=== PATIENT | female | born 1955 | race African-American/Black ===

== ENCOUNTER 2018-11-23 12:25 | Emergency (ER) | payer MEDICAID ==
[~2018-11-23] VITALS: Ht 167.6 cm; Wt 109.0 kg
[2018-11-23 14:45] LABS: BASOPHILS % 0.6 % (0.0-2.0); EOSINOPHILS % 0.6 % (0.0-5.0); HEMATOCRIT. 33.4 % (36.0-48.0); HEMOGLOBIN. 11.2 g/dL (12.0-16.0); MEAN CORPUSCULAR HEMOGLOBIN 27.7 pg (28.0-32.0); MEAN CORPUSCULAR VOLUME 82.4 fL (81.0-99.0); MONOCYTES % 8.2 % (2.0-8.0); NEUTROPHILS % 73.6 % (40.0-76.0); PLATELET 304 x1000/uL (130-400); RED BLOOD CELL COUNT 4.05 mill/uL (4.2-5.4); RED CELL DISTRIBUTION WIDTH 14.8 % (11.6-14.6)
[2018-11-23 14:51] LABS: CHLORIDE 105 mEq/L (98-107)
[2018-11-23 18:30] VITALS: BP 121/67
== END 2018-11-23 19:30 | disposition home or self-care (01) ==
LOC: ER 12:25
DX: L97.529 Non-pressure chronic ulcer of other part of left foot with unspecified severity (principal); L97.519 Non-pressure chronic ulcer of other part of right foot with unspecified severity; E11.9 Type 2 diabetes mellitus without complications; I11.0 Hypertensive heart disease with heart failure; I50.9 Heart failure, unspecified; E78.00 Pure hypercholesterolemia, unspecified; Z88.5 Allergy status to narcotic agent; Z88.6 Allergy status to analgesic agent; Z91.040 Latex allergy status
CPT/HCPCS: 36415; 80053; 83605; 85025; 99283; Z7610

== ENCOUNTER 2018-12-06 09:28 | Inpatient (IN) | payer MEDICAID ==
[~2018-12-06] VITALS: Ht 165.1 cm; Wt 109.8 kg
[2018-12-06] MEDS ORDERED: METO25TA6 PO (10:25)
[2018-12-06] MEDS ORDERED: PANT40TA4 PO (10:25)
[2018-12-06] MEDS ORDERED: NITR0.4T49 SL (10:25)
[2018-12-06] MEDS ORDERED: FLUT15.88 NS (10:25)
[2018-12-06] MEDS ORDERED: METF-414 PO (10:25)
[2018-12-06] MEDS ORDERED: MAGN400T7 PO (10:25)
[2018-12-06] MEDS ORDERED: LISI-186 PO (10:25)
[2018-12-06] MEDS ORDERED: FURO40TA5 PO (10:25)
[2018-12-06] MEDS ORDERED: CLOP75TA15 PO (10:25)
[2018-12-06] MEDS ORDERED: ACET-2708 PO (10:25)
[2018-12-06] MEDS ORDERED: ATOR-2 PO (10:25)
[2018-12-06] MEDS ORDERED: AMLO10TA80 PO (10:25)
[2018-12-06] MEDS ORDERED: TRAM50TA3 PO (10:25)
[2018-12-06] MEDS ORDERED: KETOROLAC 30MG/ML VIAL IV STA (10:31)
[2018-12-06] MEDS ORDERED: PIPERACILLIN/TAZ 3.375G PREMIX 50 ML IV ONE (10:45)
[2018-12-06] MEDS ORDERED: VANCOMYCIN 1 G PREMIX 200 ML IV ONE (10:45)
[2018-12-06] MEDS ORDERED: SODIUM CHLORIDE 0.9% 1000ML BAG (SEPSIS BOLUS) IV ONE (10:45)
[2018-12-06 11:32] LABS: BASOPHILS % 0.9 % (0.0-2.0); EOSINOPHILS % 0.4 % (0.0-5.0); HEMATOCRIT. 30.9 % (36.0-48.0); HEMOGLOBIN. 10.2 g/dL (12.0-16.0); LYMPHOCYTES % 13.7 % (20.0-50.0); MEAN CORPUSCULAR HEMOGLOBIN 27.1 pg (28.0-32.0); MEAN PLATELET VOLUME 7.4 fl (7.4-10.4); MONOCYTES % 7.7 % (2.0-8.0); NEUTROPHILS % 77.3 % (40.0-76.0); PLATELET 352 x1000/uL (130-400); RED BLOOD CELL COUNT 3.76 mill/uL (4.2-5.4); RED CELL DISTRIBUTION WIDTH 14.7 % (11.6-14.6)
[2018-12-06 11:35] LABS: CHLORIDE 102 mEq/L (98-107)
[2018-12-06 11:39] LABS: D-DIMER 3.14 mg/L FEU (<0.50); PROTHROMBIN TIME 10.8 sec (9.6-11.0)
[2018-12-06 11:52] LABS: CLARITY URINE CLOUDY (CLEAR); COLOR URINE YELLOW (YELLOW); KETONES URINE NEGATIVE (NEGATIVE); LEUKOCYTE ESTERASE URINE NEGATIVE (NEGATIVE); NITRITE URINE NEGATIVE (NEGATIVE); OCCULT BLOOD URINE NEGATIVE (NEGATIVE); PH URINE 5.5 (4.5-8.0); PROTEIN URINE 1+ (NEGATIVE); SPECIFIC GRAVITY URINE 1.012 (1.005-1.030)
[2018-12-06] MEDS ORDERED: KCL 20MEQ/100ML PREMIX 100 ML IV ONE (12:30)
[2018-12-06] MEDS ORDERED: POTASSIUM CHLORIDE 20MEQ TABLET SR PO ONE (12:30)
[2018-12-06] MEDS ORDERED: ASPIRIN 325MG EC TABLET PO ONE (13:00)
[2018-12-06] MEDS ORDERED: LORAZEPAM 2MG/ML CPJ IV PRN (14:15)
[2018-12-06] MEDS ORDERED: GUAIFENESIN 200MG/10ML SUGAR FREE UDC PO PRN (14:15)
[2018-12-06] MEDS ORDERED: MAGNESIUM/ALUMINUM HYDROXIDE/SIMETHICONE 30ML UDC PO PRN (14:15)
[2018-12-06] MEDS ORDERED: NA PHOS,M-B/NA PHOS,DI-BA ENEMA 118ML PR PRN (14:15)
[2018-12-06] MEDS ORDERED: IPRATROPIUM/ALBUTEROL 0.5-3(2.5)MG/3ML NEB INH PRN (14:15)
[2018-12-06] MEDS ORDERED: CLONIDINE 0.1MG TABLET PO PRN (14:15)
[2018-12-06] MEDS ORDERED: DIPHENHYDRAMINE 50MG/ML VIAL IV PRN (14:15)
[2018-12-06] MEDS ORDERED: ONDANSETRON HCL 4MG/2ML INJ IV PRN (14:15)
[2018-12-06] MEDS ORDERED: DOCUSATE SODIUM 100MG CAPSULE PO PRN (14:15)
[2018-12-06] MEDS ORDERED: IOHEXOL-350 100 ML BOTTLE ONE (15:17)
[2018-12-06 16:00] VITALS: BP 147/88
[2018-12-06 17:37] VITALS: BP 147/88
[2018-12-06] MEDS: VANCOMYCIN 1 G PREMIX 200 ML IV SCH (18:44)
[2018-12-06] MEDS: ENOXAPARIN 30MG/0.3ML SYR SUBCUT SCH (18:44)
[2018-12-06 19:00] LABS: CHLORIDE 106 mEq/L (98-107)
[2018-12-06] MEDS ORDERED: PNEUMOCOCCAL 23-VAL P-SAC VAC 0.5 ML IM ONE (19:30)
[2018-12-06 20:00] VITALS: BP 116/61
[2018-12-06] MEDS: AMLODIPINE 5MG TABLET PO SCH (20:49)
[2018-12-07] VITALS: BP 97/46
[2018-12-07 04:00] VITALS: BP 120/60
[2018-12-07] MEDS: HYDROCODONE/ACETAMINOPHEN 10/325MG TABLET PO PRN ×2 (05:22→23:47)
[2018-12-07] MEDS: VANCOMYCIN 1 G PREMIX 200 ML IV SCH (06:00)
[2018-12-07 06:21] LABS: EOSINOPHILS % 1.4 % (0.0-5.0); HEMOGLOBIN. 8.7 g/dL (12.0-16.0); LYMPHOCYTES % 24.8 % (20.0-50.0); MEAN CORPUSCULAR HEMOGLOBIN 27.4 pg (28.0-32.0); MEAN CORPUSCULAR VOLUME 81.6 fL (81.0-99.0); MEAN PLATELET VOLUME 7.6 fl (7.4-10.4); NEUTROPHILS % 59.8 % (40.0-76.0); PLATELET 285 x1000/uL (130-400); RED BLOOD CELL COUNT 3.19 mill/uL (4.2-5.4); RED CELL DISTRIBUTION WIDTH 14.8 % (11.6-14.6)
[2018-12-07 06:27] LABS: CHLORIDE 106 mEq/L (98-107)
[2018-12-07 06:36] LABS: T4 FREE 1.27 ng/dL (0.76-1.46)
[2018-12-07] MEDS: ENOXAPARIN 30MG/0.3ML SYR SUBCUT SCH ×2 (08:09→17:56)
[2018-12-07 08:44] VITALS: BP 132/57
[2018-12-07] MEDS: AMLODIPINE 5MG TABLET PO SCH ×2 (08:54→20:56)
[2018-12-07] MEDS: ASPIRIN 81MG EC TABLET PO SCH (08:54)
[2018-12-07] MEDS ORDERED: DEXTROSE 50% WATER 50ML SYRINGE IV PRN (11:00)
[2018-12-07 11:36] VITALS: BP 137/71
[2018-12-07] MEDS: BLOOD SUGAR DIAGNOSTIC STRIP TEST SCH ×3 (12:40→20:17)
[2018-12-07] MEDS ORDERED: VANCOMYCIN 750 MG PREMIX 150 ML IV SCH (13:00)
[2018-12-07] MEDS ORDERED: VANCOMYCIN 1 G PREMIX 200 ML IV SCH (13:00)
[2018-12-07] MEDS: INSULIN LISPRO 100 UNITS/ML SUBCUT SCH ×3 (13:04→20:55)
[2018-12-07 16:11] VITALS: BP 136/64
[2018-12-07] MEDS: LEVOFLOXACIN 500MG PREMIX 100 ML IV SCH (17:56)
[2018-12-07 20:00] VITALS: BP 121/65
[2018-12-08] VITALS (8 sets, daily range): BP systolic 103–141; BP diastolic 45–78
[2018-12-08] MEDS: INSULIN LISPRO 100 UNITS/ML SUBCUT SCH ×4 (06:00→21:00)
[2018-12-08] MEDS: BLOOD SUGAR DIAGNOSTIC STRIP TEST SCH ×4 (06:20→21:21)
[2018-12-08] MEDS: ENOXAPARIN 30MG/0.3ML SYR SUBCUT SCH ×2 (06:27→18:10)
[2018-12-08] MEDS: AMLODIPINE 5MG TABLET PO SCH ×2 (08:50→21:18)
[2018-12-08] MEDS: ASPIRIN 81MG EC TABLET PO SCH (08:50)
[2018-12-08] MEDS ORDERED: AMIODARONE HCL 150 MG in DEXT 5% WATER 100 ML IV SCH (17:45)
[2018-12-08 17:54] LABS: CHLORIDE 107 mEq/L (98-107)
[2018-12-08] MEDS: AMIODARONE HCL 900 MG in DEXT 5% WATER 482 ML IV PRN (18:19)
[2018-12-08] MEDS: HYDROCODONE/ACETAMINOPHEN 10/325MG TABLET PO PRN (21:18)
[2018-12-08] MEDS: LEVOFLOXACIN 500MG PREMIX 100 ML IV SCH (21:19)
[2018-12-09] VITALS (13 sets, daily range): BP systolic 96–174; BP diastolic 51–93
[2018-12-09] MEDS: BLOOD SUGAR DIAGNOSTIC STRIP TEST SCH ×4 (06:06→21:44)
[2018-12-09] MEDS: ENOXAPARIN 30MG/0.3ML SYR SUBCUT SCH ×2 (06:06→17:49)
[2018-12-09] MEDS: INSULIN LISPRO 100 UNITS/ML SUBCUT SCH ×4 (06:12→21:00)
[2018-12-09] MEDS: AMLODIPINE 5MG TABLET PO SCH ×2 (08:45→21:46)
[2018-12-09] MEDS: ASPIRIN 81MG EC TABLET PO SCH (08:45)
[2018-12-09] MEDS: AMIODARONE HCL 900 MG in DEXT 5% WATER 482 ML IV PRN (15:45)
[2018-12-09] MEDS: LEVOFLOXACIN 500MG PREMIX 100 ML IV SCH (17:49)
[2018-12-10] VITALS (15 sets, daily range): BP systolic 105–162; BP diastolic 48–86
[2018-12-10] MEDS: HYDROCODONE/ACETAMINOPHEN 10/325MG TABLET PO PRN ×2 (04:05→22:57)
[2018-12-10] MEDS: BLOOD SUGAR DIAGNOSTIC STRIP TEST SCH ×4 (06:13→21:01)
[2018-12-10] MEDS: ENOXAPARIN 30MG/0.3ML SYR SUBCUT SCH ×2 (06:16→17:48)
[2018-12-10] MEDS: INSULIN LISPRO 100 UNITS/ML SUBCUT SCH ×4 (06:31→21:00)
[2018-12-10 06:39] LABS: BASOPHILS % 0.9 % (0.0-2.0); EOSINOPHILS % 2.6 % (0.0-5.0); HEMATOCRIT. 24.9 % (36.0-48.0); HEMOGLOBIN. 8.3 g/dL (12.0-16.0); LYMPHOCYTES % 23.1 % (20.0-50.0); MEAN CORPUSCULAR HEMOGLOBIN 27.4 pg (28.0-32.0); MEAN CORPUSCULAR VOLUME 81.9 fL (81.0-99.0); MEAN PLATELET VOLUME 7.2 fl (7.4-10.4); MONOCYTES % 10.6 % (2.0-8.0); NEUTROPHILS % 62.8 % (40.0-76.0); PLATELET 272 x1000/uL (130-400); RED BLOOD CELL COUNT 3.04 mill/uL (4.2-5.4); RED CELL DISTRIBUTION WIDTH 14.8 % (11.6-14.6)
[2018-12-10 06:59] LABS: CHLORIDE 107 mEq/L (98-107)
[2018-12-10] MEDS: ASPIRIN 81MG EC TABLET PO SCH (08:41)
[2018-12-10] MEDS: AMLODIPINE 5MG TABLET PO SCH ×2 (08:43→20:58)
[2018-12-10] MEDS: LEVOFLOXACIN 500MG PREMIX 100 ML IV SCH (17:48)
[2018-12-10] MEDS: METOPROLOL TARTRATE 50MG TABLET PO SCH (20:57)
[2018-12-11 04:00] VITALS: BP 162/92
[2018-12-11] MEDS: BLOOD SUGAR DIAGNOSTIC STRIP TEST SCH ×4 (04:51→21:20)
[2018-12-11 05:37] VITALS: BP 120/87
[2018-12-11] MEDS: ENOXAPARIN 30MG/0.3ML SYR SUBCUT SCH ×2 (05:52→18:26)
[2018-12-11 08:00] VITALS: BP 124/50
[2018-12-11] MEDS: INSULIN LISPRO 100 UNITS/ML SUBCUT SCH ×4 (08:10→21:24)
[2018-12-11] MEDS: AMLODIPINE 5MG TABLET PO SCH ×2 (08:47→21:18)
[2018-12-11] MEDS: ASPIRIN 81MG EC TABLET PO SCH (08:47)
[2018-12-11] MEDS: METOPROLOL TARTRATE 50MG TABLET PO SCH ×2 (08:47→21:18)
[2018-12-11 12:00] VITALS: BP 107/59
[2018-12-11] MEDS: HYDROCODONE/ACETAMINOPHEN 10/325MG TABLET PO PRN (12:37)
[2018-12-11 16:00] VITALS: BP 121/59
[2018-12-11] MEDS: AMPICILLIN 500MG in SODIUM CHLORIDE 0.9% 50ML IV SCH (17:31)
[2018-12-11] MEDS: SULFAMETHOXAZOLE/TRIMETHOPRIM 800/160MG TABLET PO SCH (17:59)
[2018-12-11 20:00] VITALS: BP 139/61
[2018-12-11] MEDS ORDERED: HYDROCODONE/ACETAMINOPHEN 10/325MG TABLET PO PRN (21:45)
[2018-12-12] MEDS: AMPICILLIN 500MG in SODIUM CHLORIDE 0.9% 50ML IV SCH ×5 (00:16→23:59)
[2018-12-12 04:00] VITALS: BP 120/80
[2018-12-12] MEDS: ENOXAPARIN 30MG/0.3ML SYR SUBCUT SCH ×2 (05:58→16:42)
[2018-12-12] MEDS: BLOOD SUGAR DIAGNOSTIC STRIP TEST SCH ×4 (06:05→22:26)
[2018-12-12 06:27] LABS: EOSINOPHILS % 2.5 % (0.0-5.0); HEMATOCRIT. 24.7 % (36.0-48.0); HEMOGLOBIN. 8.3 g/dL (12.0-16.0); LYMPHOCYTES % 29.6 % (20.0-50.0); MEAN CORPUSCULAR HEMOGLOBIN 27.4 pg (28.0-32.0); MEAN CORPUSCULAR VOLUME 81.8 fL (81.0-99.0); MEAN PLATELET VOLUME 7.4 fl (7.4-10.4); MONOCYTES % 10.6 % (2.0-8.0); NEUTROPHILS % 56.3 % (40.0-76.0); PLATELET 253 x1000/uL (130-400); RED BLOOD CELL COUNT 3.02 mill/uL (4.2-5.4); RED CELL DISTRIBUTION WIDTH 14.6 % (11.6-14.6)
[2018-12-12 08:00] VITALS: BP 128/53
[2018-12-12] MEDS: INSULIN LISPRO 100 UNITS/ML SUBCUT SCH ×4 (08:10→21:00)
[2018-12-12] MEDS: SULFAMETHOXAZOLE/TRIMETHOPRIM 800/160MG TABLET PO SCH ×2 (09:59→22:21)
[2018-12-12] MEDS: ASPIRIN 81MG EC TABLET PO SCH (10:00)
[2018-12-12] MEDS: METOPROLOL TARTRATE 50MG TABLET PO SCH ×2 (10:00→22:21)
[2018-12-12] MEDS: AMLODIPINE 5MG TABLET PO SCH ×2 (10:00→22:21)
[2018-12-12 12:00] VITALS: BP 157/57
[2018-12-12 16:00] VITALS: BP 131/64
[2018-12-12 20:00] VITALS: BP 136/72
[2018-12-12] MEDS ORDERED: HYDROCODONE/ACETAMINOPHEN 10/325MG TABLET PO PRN (22:30)
[2018-12-13] VITALS: BP 113/63
[2018-12-13 04:00] VITALS: BP 138/83
[2018-12-13] MEDS: ENOXAPARIN 30MG/0.3ML SYR SUBCUT SCH (05:36)
[2018-12-13] MEDS: AMPICILLIN 500MG in SODIUM CHLORIDE 0.9% 50ML IV SCH ×2 (05:36→12:16)
[2018-12-13] MEDS: BLOOD SUGAR DIAGNOSTIC STRIP TEST SCH ×2 (07:47→12:16)
[2018-12-13] MEDS: INSULIN LISPRO 100 UNITS/ML SUBCUT SCH ×2 (07:47→12:31)
[2018-12-13 08:00] VITALS: BP 126/56
[2018-12-13] MEDS: AMLODIPINE 5MG TABLET PO SCH (09:37)
[2018-12-13] MEDS: SULFAMETHOXAZOLE/TRIMETHOPRIM 800/160MG TABLET PO SCH (09:37)
[2018-12-13] MEDS: ASPIRIN 81MG EC TABLET PO SCH (09:37)
[2018-12-13] MEDS: METOPROLOL TARTRATE 50MG TABLET PO SCH (09:38)
[2018-12-13 12:00] VITALS: BP 126/58
[2018-12-13 15:29] VITALS: BP 129/68
== END 2018-12-13 16:20 | disposition home or self-care (01) | DRG 133 ==
LOC: ER 09:28 → 7WST 12:58 → EDBEDREQTM 13:02 → EDBEDREQ 13:02 → ENRESERV 13:17 → 3WST 12-08 16:49 → 7WST 12-10 23:08
PROVIDERS: ADMIT Internal Medicine; ATTEND Internal Medicine
DX: J96.00 Acute respiratory failure, unspecified whether with hypoxia or hypercapnia (principal); N17.0 Acute kidney failure with tubular necrosis; I47.2 Ventricular tachycardia; E46 Unspecified protein-calorie malnutrition; E11.51 Type 2 diabetes mellitus with diabetic peripheral angiopathy without gangrene; R65.10 Systemic inflammatory response syndrome (SIRS) of non-infectious origin without acute organ dysfunction; E11.42 Type 2 diabetes mellitus with diabetic polyneuropathy; Z68.41 Body mass index [BMI] 40.0-44.9, adult; E11.621 Type 2 diabetes mellitus with foot ulcer; I11.0 Hypertensive heart disease with heart failure; L97.429 Non-pressure chronic ulcer of left heel and midfoot with unspecified severity; L97.419 Non-pressure chronic ulcer of right heel and midfoot with unspecified severity; D64.9 Anemia, unspecified; I25.10 Atherosclerotic heart disease of native coronary artery without angina pectoris; I70.0 Atherosclerosis of aorta; R26.9 Unspecified abnormalities of gait and mobility; I50.42 Chronic combined systolic (congestive) and diastolic (congestive) heart failure; L57.0 Actinic keratosis; J44.9 Chronic obstructive pulmonary disease, unspecified; Z59.0 Homelessness; Z72.0 Tobacco use; Z79.01 Long term (current) use of anticoagulants; Z82.49 Family history of ischemic heart disease and other diseases of the circulatory system; Z83.3 Family history of diabetes mellitus; Z86.711 Personal history of pulmonary embolism; Z86.718 Personal history of other venous thrombosis and embolism; Z79.84 Long term (current) use of oral hypoglycemic drugs; Z79.899 Other long term (current) drug therapy; Z88.5 Allergy status to narcotic agent; Z88.8 Allergy status to other drugs, medicaments and biological substances; Z88.1 Allergy status to other antibiotic agents; Z91.040 Latex allergy status; Z79.82 Long term (current) use of aspirin; Z56.0 Unemployment, unspecified; Z89.022 Acquired absence of left finger(s); E87.6 Hypokalemia
CPT/HCPCS: 36415; 71045; 71275; 80048; 82962; 83605; 83735; 83880; 84134; 84145; 84439; 84443; 84484; 85379; 87070; 87077; 87186; 90732; 93005; 93306; 93923; 93970; 97116; 97162; 99285; A6261; C1893; J0282; J0290; J1200; J1650; J1815; J1885; J1956; J2543; J3370; J3480; J7030; J7050; J7060; Q9967; A4315